=== PATIENT | male | born 1980 | race Caucasian/White ===

== ENCOUNTER 2020-08-18 05:28 | Emergency (ER) | payer OTHER ==
[~2020-08-18] VITALS: Ht 180.3 cm; Wt 95.3 kg
[2020-08-18 05:28] VITALS: BP 138/89
== END 2020-08-18 06:19 | disposition home or self-care (01) ==
LOC: M ED 05:28
DX: S60.511A Abrasion of right hand, initial encounter (principal); V48.5XXA Car driver injured in noncollision transport accident in traffic accident, initial encounter; Y92.9 Unspecified place or not applicable; Y93.9 Activity, unspecified; Y99.9 Unspecified external cause status